=== PATIENT | female | born 1970 | race Caucasian/White ===

== ENCOUNTER 2019-04-09 18:45 | Emergency (ER) | payer BC ==
[~2019-04-09] VITALS: Ht 165.1 cm; Wt 82.6 kg
[2019-04-09] MEDS ORDERED: CEPHALEXIN500 M1 PO (20:05)
== END 2019-04-09 20:16 | disposition home or self-care (01) ==
LOC: ED 18:45
DX: S51.012A Laceration without foreign body of left elbow, initial encounter (principal); Z23 Encounter for immunization; Z91.040 Latex allergy status; W45.8XXA Other foreign body or object entering through skin, initial encounter; Y93.89 Activity, other specified; Y92.89 Other specified places as the place of occurrence of the external cause; Y99.8 Other external cause status